=== PATIENT | male | born 1965 | race Caucasian/White ===

== ENCOUNTER 2021-07-01 17:44 | Emergency (ER) | payer MEDICAID ==
[~2021-07-01] VITALS: Ht 185.4 cm; Wt 115.0 kg
[2021-07-01 17:55] VITALS: BP 178/106
== END 2021-07-01 20:04 | disposition home or self-care (01) ==
LOC: ER 17:44
DX: M25.561 Pain in right knee (principal); Z91.030 Bee allergy status
CPT/HCPCS: 29505; 73564; 99283